=== PATIENT | male | born 1990 | race Caucasian/White ===

== ENCOUNTER 2018-04-20 15:09 | Emergency (ER) | payer SELFPAY ==
[~2018-04-20] VITALS: Wt 145.1 kg
[~2018-04-20 15:09] MED LIST: ATIVAN1 MG PO; BENADRYL25 MG PO; DOMEBORO1 PDR TP; MOTRIN800 MG PO; PEN-VEE K500 MG PO; PREDNICOT20 MG PO; PREDNISONE20 MG PO; ULTRAM50 MG PO; ZANTAC150 MG PO; ZITHROMAX Z PA250 MG PO
[2018-04-20] MEDS ORDERED: CEPHALEXIN500 M1 PO (15:23)
== END 2018-04-20 15:35 | disposition home or self-care (01) ==
LOC: ED 15:09
DX: S91.332A Puncture wound without foreign body, left foot, initial encounter (principal); Z88.8 Allergy status to other drugs, medicaments and biological substances; W22.09XA Striking against other stationary object, initial encounter; Y93.89 Activity, other specified; Y92.89 Other specified places as the place of occurrence of the external cause; Y99.8 Other external cause status